=== PATIENT | female | born 1990 | race Caucasian/White ===

== ENCOUNTER 2022-05-27 05:53 | Emergency (ER) | payer OTHER ==
[~2022-05-27] VITALS: Ht 172.7 cm; Wt 61.2 kg
[2022-05-27] MEDS ORDERED: IV NORMAL SALINE 1000 ML BAG IV ONE (07:15)
[2022-05-27 07:20] LABS: MEAN CORPUSCULAR HEMOGLOBIN 30.3 uug (24.7-32.8); MEAN CORPUSCULAR VOLUME 91.5 fL (75.5-95.3); PLATELET COUNT (AUTO) 305 K/uL (179-408)
--- NOTE | 2022-05-27 07:29 | NUR ---
32 years old female alert, oriented x4 walk in to er c/o nausea vomiting diarrhea. patient resting no acute distress noted vss will continue to monitor.
[2022-05-27 07:36] LABS: BILIRUBIN,DIRECT 0.1 mg/dL (0.0-0.2); BILIRUBIN,TOTAL 0.4 mg/dL (0.2-1.0); CREATININE 0.8 mg/dL (0.6-1.3); POTASSIUM 3.5 mmol/L (3.5-5.1); TOTAL PROTEIN, SERUM 7.3 g/dL (6.4-8.2)
[2022-05-27 08:12] LABS: *BILIRUBIN,URIN NEGATIVE (NEGATIVE); *CLARITY,URINE CLEAR (CLEAR); *COLOR,URINE YELLOW (YELLOW); *KETONES,URINE TRACE (NEGATIVE); *UROBILINOGEN,URINE 0.2 E.U./dl (NORMAL); LEUKOCYTE ESTERASE ,URINE NEGATIVE (NEGATIVE); NITRITE, URINE NEGATIVE (NEGATIVE); UGLUCOSE NEGATIVE (NEGATIVE)
[2022-05-27 08:13] LABS: *URINE HCG, QUAL NEG (NEGATIVE)
[2022-05-27 08:14] LABS: *BLOOD, URINE TRACE (NEGATIVE)
[2022-05-27] MEDS ORDERED: ONDA4TAB5 PO (08:49)
[2022-05-27] MEDS ORDERED: CIPR-262 PO (08:50)
[2022-05-27 09:23] VITALS: BP 118/70
--- NOTE | 2022-05-27 09:24 | NUR ---
patient reassess condition stable no nausea vomiting d/c home with instructions after care reviewed understood left er ambulatory with steady gait.
[2022-05-27 12:02] LABS: BACTERIA,URINE MANY /HPF (NONE SEEN); SQUAMOUS EPITHELIAL CELL,UR MANY /HPF (NONE SEEN)
[2022-05-30] MEDS ORDERED: LORAZEPAM 2 MG/1 ML VIAL IV ONE (17:15)
== END 2022-05-27 09:27 | disposition home or self-care (01) ==
LOC: ER 06:00
DX: K52.9 Noninfective gastroenteritis and colitis, unspecified (principal)
CPT/HCPCS: 99284; 96360; 80076; 80048; 81001; 84703; 83690; 85025; 89055; 36415; 87045; 87046; 87427; 87177; J7040; A4663